=== PATIENT | male | born 2000 | race Two or more races ===

== ENCOUNTER 2020-12-14 19:27 | Emergency (ER) | payer OTHER ==
[~2020-12-14] VITALS: Ht 172.7 cm; Wt 91.8 kg
[2020-12-14] MEDS ORDERED: ONDA4TAB7 PO (20:00)
--- NOTE | 2020-12-14 20:00 | PHYS DOC ---
Adult General Chief Complaint Chief Complaint: NAUSEA/VOMITING/DIARRHEA HPI HPI Patient is a 19-year-old male, otherwise healthy who works at the longterm who presents with a chief complaint of nausea, vomiting and watery diarrhea for couple of days. States that it has been going around in the longterm. Denies any fevers, sore throat, chest pain, shortness of breath, other abdominal pain, dysuria, hematuria, blood in the stool. States he had not taken any medications for this. Denies any alcohol or drug use. Denies any recent traumas, travel. Review of Systems Review of Systems Review of systems otherwise unremarkable except noted in HPI Current Medications Current Medications Current Medications Medications (Trade) Dose Ordered Sig/Claudia Start Time Stop Time Status Last Admin Dose Admin Ondansetron HCl (Zofran Odt) 8 mg 1X ONCE 12/14/20 19:30 12/14/20 19:31 UNV Physical Exam Physical Exam Constitutional: Well developed, well nourished, no acute distress, non-toxic appearance. [] HENT: Normocephalic, atraumatic, bilateral external ears normal, oropharynx moist, no oral exudates, nose normal. [] Eyes: conjunctiva normal, no discharge. [] Neck: Normal range of motion, no tenderness, supple, no stridor. [] Cardiovascular:Heart rate regular rhythm, no murmur [] Lungs & Thorax: Bilateral breath sounds clear to auscultation [] Abdomen: soft, no tenderness, no masses, no pulsatile masses. [] Skin: Warm, dry, no erythema, no rash. [] Back: no CVA tenderness. [] Extremities: No tenderness, no cyanosis, no clubbing, ROM intact, no edema. [] Neurologic: Alert and oriented X 3, normal motor function, normal sensory function, no focal deficits noted. [] Psychologic: Affect normal, judgement normal, mood normal. [] EKG EKG [] Radiology/Procedures Radiology/Procedures [] Heart Score C/O Chest Pain: No Risk Factors: Risk Factors: DM, Current or recent (<one month) smoker, HTN, HLP, family history of CAD, obesity. Risk Scores: Risk Factors: DM, Current or recent (<one month) smoker, HTN, HLP, family history of CAD, obesity. Course & Med Decision Making Course & Med Decision Making Patient is a 19-year-old male who presents with nausea, vomiting and diarrhea Vital signs not concerning. Physical exam noted above. Given oral Zofran which allowed patient to take p.o. in the ED. Discussed all findings with patient and gave work note over the next couple of days as I told him I want him to contact his primary care physician to set up a follow-up and prevent spread of any communicable disease in the longterm. Discussed symptom control at home. Discussed diet at home. Advised to call primary care physician first thing in the morning. Gave return precautions to the ED. Patient grateful, verbalized understanding and agreed with plan of discharge. Dragon Disclaimer Dragon Disclaimer This electronic medical record was generated, in whole or in part, using a voice recognition dictation system. Departure Departure: Impression: Primary Impression: Nausea vomiting and diarrhea Disposition: HOME / SELF CARE / HOMELESS Condition: GOOD Referrals: PCP,UNKNOWN (PCP) NATE GARCIA MD Patient Instructions: Diarrhea, Nausea and Vomiting Additional Instructions: Thank you for coming into the emergency department today and allowing us to take care of you. You were given nausea medication in the emergency department which allowed you to take in oral fluids. As discussed, you were given a work note for the next couple days to allow you to stay home, take care of yourself, call your primary care physician and not go back to the longterm and spread any viruses or illnesses that you may have. Please call your primary care physician first thing in the morning to update on ED visit and set up a follow-up visit. Please take your nausea medicine as prescribed. Please adjust your diet as discussed. Please come back to the emergency department with new or concerning symptoms as discussed. Scripts Ondansetron Hcl (ZOFRAN) 4 Mg Tablet 1 TAB PO PRN Q6HRS PRN for NAUSEA, #20 TAB Prov: JUAN HAUSER MD 12/14/20 JUAN HAUSER MD Dec 14, 2020 20:00
[2020-12-14 20:02] VITALS: BP 147/79
[2020-12-14] MEDS ORDERED: ONDANSETRON ODT 4 MG TAB.RAPDIS PO ONE (20:15)
== END 2020-12-14 20:18 | disposition home or self-care (01) ==
LOC: ER 19:27
DX: R11.2 Nausea with vomiting, unspecified (principal); R19.7 Diarrhea, unspecified
CPT/HCPCS: 99283; Q0162

== ENCOUNTER 2020-12-17 12:44 | Emergency (ER) | payer OTHER ==
[~2020-12-17] VITALS: Ht 172.7 cm; Wt 90.7 kg
[~2020-12-17 12:44] MED LIST: ONDA4TAB7 PO
[2020-12-17] MEDS ORDERED: IV NORMAL SALINE 1,000ML 1,000 ML IV ONE (13:00)
[2020-12-17] MEDS ORDERED: ONDANSETRON PF 4 MG/2 ML VIAL. IVP ONE (13:00)
--- NOTE | 2020-12-17 13:13 | PHYS DOC ---
Past History Past Medical History: No Pertinent History (JUAN PABLO DAHL APRN) Past Surgical History: No Surgical History (JUAN PABLO DAHL APRN) Alcohol Use: Occasionally (JUAN PABLO DAHL APRN) General Adult EDM: Chief Complaint: NAUSEA/VOMITING/DIARRHEA HPI: HPI: Patient is a 19-year-old male presents with nausea and vomiting. Patient states he was seen here in the emergency room on 12/14 for nausea and vomiting. Patient was sent home with a prescription for Zofran and denies any episodes of vomiting until this morning. Patient denies diarrhea, abdominal pain, fevers. Denies medical history. (JUAN PABLO DAHL APRN) Review of Systems: Review of Systems: Constitutional: Denies fever or chills Eyes: Denies change in visual acuity HENT: Denies nasal congestion or sore throat Respiratory: Denies cough or shortness of breath Cardiovascular: Denies chest pain or edema GI: Denies abdominal pain. Reports nausea and vomiting. : Denies dysuria Musculoskeletal: Denies back pain or joint pain Integument: Denies rash Neurologic: Denies headache, focal weakness or sensory changes Endocrine: Denies polyuria or polydipsia Lymphatic: Denies swollen glands Psychiatric: Denies depression or anxiety (JUAN PABLO DAHL APRN) Current Medications: Current Meds: Current Medications Medications (Trade) Dose Ordered Sig/Claudia Start Time Stop Time Status Last Admin Dose Admin Ondansetron HCl (Zofran) 4 mg 1X ONCE 12/17/20 13:00 12/17/20 13:01 DC Sodium Chloride 1,000 ml @ 1,000 mls/hr 1X ONCE 12/17/20 13:00 12/17/20 13:59 (JUAN PABLO DAHL APRN) Allergies: Allergies: Allergies Coded Allergies Type Severity Reaction Last Updated Verified No Known Drug Allergies 12/14/20 No (JUAN PABLO DAHL APRN) Physical Exam: PE: Constitutional: Well developed, well nourished, no acute distress, non-toxic appearance. [] HENT: Normocephalic, atraumatic, bilateral external ears normal, oropharynx moist, no oral exudates, nose normal. [] Eyes: PERRLA, EOMI, conjunctiva normal, no discharge. [] Neck: Normal range of motion, no tenderness, supple, no stridor. [] Cardiovascular:Heart rate regular rhythm, no murmur [] Lungs & Thorax: Bilateral breath sounds clear to auscultation [] Abdomen: Bowel sounds normal, soft, no tenderness Skin: Warm, dry, no erythema, no rash. [] Back: No tenderness, no CVA tenderness. [] Extremities: No tenderness, no cyanosis, no clubbing, ROM intact, no edema. [] Neurologic: Alert and oriented X 3, normal motor function, normal sensory function, no focal deficits noted. [] Psychologic: Affect normal, judgement normal, mood normal. [] (JUAN PABLO DAHL APRN) Current Patient Data: Vital Signs: Vital Signs Date Time Temp Pulse Resp B/P (MAP) Pulse Ox O2 Delivery O2 Flow Rate FiO2 12/17/20 12:45 98.0 74 20 154/71 (98) 100 (JUAN PABLO DAHL APRN) EKG: EKG: [] (JUAN PABLO DAHL APRN) Radiology/Procedures: Radiology/Procedures: [] (JUAN PABLO DAHL APRN) Heart Score: C/O Chest Pain: No Risk Factors: Risk Factors: DM, Current or recent (<one month) smoker, HTN, HLP, family history of CAD, obesity. Risk Scores: Score 0 - 3: 2.5% MACE over next 6 weeks - Discharge Home Score 4 - 6: 20.3% MACE over next 6 weeks - Admit for Clinical Observation Score 7 - 10: 72.7% MACE over next 6 weeks - Early Invasive Strategies (JUAN PABLO DAHL APRN) Course & Med Decision Making: Course & Med Decision Making Pertinent Labs and Imaging studies reviewed. (See chart for details) [] 19-year-old male presents with an episode of vomiting this morning. Patient reports taking a Zofran this morning. Patient given a liter bolus of normal saline and 4 mg of Zofran in the emergency room.. Patient denying nausea at this time. AST, ALT, alkaline phos slightly elevated. Patient given prescription for 40 mg of Nexium daily. Instructed patient to call PCP to get a follow-up appointment. Patient to continue taking Zofran as needed. All other labs were nonconcerning. Patient is hemodynamically stable. Patient's appreciative and okay with discharge plan. (JUAN PABLO DAHL APRN) Edilon Disclaimer: Dragon Disclaimer: This electronic medical record was generated, in whole or in part, using a voice recognition dictation system. (JUAN PABLO DAHL APRN) Attending Co-Sign The patient was seen and interviewed as well as examined at the bedside. The chart was reviewed. The case was discussed. Agree with the plan of care. (LILIANA BALDWIN DO) Departure Departure: Impression: Primary Impression: Nausea & vomiting Qualified Codes: R11.2 - Nausea with vomiting, unspecified Additional Impression: GERD (gastroesophageal reflux disease) Qualified Codes: K21.9 - Gastro-esophageal reflux disease without esophagitis Disposition: HOME / SELF CARE / HOMELESS Condition: STABLE Referrals: CECILIA SHEN DO (PCP) Patient Instructions: Nausea and Vomiting Additional Instructions: You are seen in the emergency room for an episode of vomiting this morning after being seen in the emergency room 2 days ago for nausea and vomiting. Sending you home with prescription for Nexium. Please call your PCP to set up an appointment for follow-up. Return to the emergency room if you have worsening symptoms or concerns. EMERGENCY DEPARTMENT GENERAL DISCHARGE INSTRUCTIONS Thank you for coming to [facility] (ED) today and trusting us with you care. We trust that you had a positivie experience in our Emergency Department. If you wish to speak to the department management, you may call the director at [phone]. YOUR FOLLOW UP INSTRUCTIONS ARE FOLLOWS: 1. Do you have a private Doctor? If you do not have a private doctor, please ask for a resource list of physicians or clinics that may be able to assist you with follow up care. 2. The Emergency Physician has interpreted your x-rays. The X-Ray specialist will also review them. If there is a change in the findings, you will be notified in 48 hours when at all possible. 3. A lab test or culture has been done, your results will be reviewed and you will be notified if you need a change in treatment. ADDITIONAL INSTRUCTIONS AND INFORMATION: 1. Your care today has been supervised by a physician who is specially trained in emergency care. Many problems require more than one evaluation for a complete diagnosis and treatment. We recommend that you schedule your follow up appointment as recommended to ensure complete treatment of you illness or injury. If you are unable to obtain follow up care and continue to have a problem, or if your condition worsens, we recommend that you return to the ED. 2. We are not able to safely determine your condition over the phone nor are we able to give sound medical advice over the phone. For these safety reasons, if you call for medical advice we will ask you to come to the ED for further evaluation. 3. If you have any questions regarding these discharge instructions please call the ED at [phone]. SAFETY INFORMATION: In the interest of safety, wellness, and injury prevention; we encourage you to wear your sealbelt, if you smoke; quite smoking, and we encourage family to use a protective helmet for bicycling and other sporting events that present an increased risk for head injury. IF YOUR SYMPTOMS WORSEN OR NEW SYMPTOMS DEVELOP, OR YOU HAVE CONCERNS ABOUT YOUR CONDITION; OR IF YOUR CONDITION WORSENS WHILE YOU ARE WAITING FOR YOUR FOLLOW UP APPOINTMENT; EITHER CONTACT YOUR PRIMARY CARE DOCTOR, THE PHYSICIAN WHOSE NAME AND NUMBER YOU WERE GIVEN, OR RETURN TO THE ED IMMEDIATELY. Scripts Esomeprazole Magnesium (NEXIUM CAPSULE) 40 Mg Capsule.dr 1 CAP PO DAILY for gerd for 14 Days, #14 CAP 5 Refills Prov: JUAN PABLO DAHL APRN 12/17/20 JUAN PABLO DAHL APRN Dec 17, 2020 13:13 LILIANA BALDWIN DO Dec 18, 2020 06:40
[2020-12-17 13:16] LABS: BASO % 1 % (0-3); EOS # 0.1 x10^3/uL (0.0-0.7); EOS % 1 % (0-3); HEMATOCRIT 45.8 % (39.0-53.0); HEMOGLOBIN 15.7 g/dL (13.0-17.5); LYMPH # 1.3 x10^3/uL (1.0-4.8); LYMPH % 16 % (24-48); MEAN CORPUSCULAR HEMOGLOBIN 30 pg (25-35); MEAN CORPUSCULAR HGB CONC 34 g/dL (31-37); MEAN CORPUSCULAR VOLUME 87 fL (79-100); MONO # 0.5 x10^3/uL (0.0-1.1); MONO % 6 % (0-9); NEUT # 5.9 x10^3uL (1.8-7.7); NEUT % 76 % (31-73); PLATELET COUNT 279 x10^3/uL (140-400); RED BLOOD COUNT 5.27 x10^6/uL (4.30-5.70); RED CELL DISTRIBUTION WIDTH 12.7 % (11.5-14.5); WHITE BLOOD COUNT 7.8 x10^3/uL (4.0-11.0)
[2020-12-17 13:22] LABS: CALCIUM 9.8 mg/dL (8.5-10.1); CREATININE 1.2 mg/dL (0.7-1.3); GFR 76.4; POTASSIUM 3.7 mmol/L (3.5-5.1)
[2020-12-17 13:28] LABS: ALBUMIN 4.6 g/dL (3.4-5.0); ALBUMIN/GLOBULIN RATIO 1.2 (1.0-1.7); TOTAL BILIRUBIN 0.4 mg/dL (0.2-1.0); TOTAL PROTEIN 8.3 g/dL (6.4-8.2)
[2020-12-17 13:55] LABS: DIRECT BILIRUBIN 0.1 mg/dL (0.0-0.2)
[2020-12-17] MEDS ORDERED: ESOM40CA PO (14:24)
[2020-12-17 14:35] VITALS: BP 146/57
== END 2020-12-17 14:35 | disposition home or self-care (01) ==
LOC: ER 12:44
DX: K21.9 Gastro-esophageal reflux disease without esophagitis (principal); R11.2 Nausea with vomiting, unspecified
CPT/HCPCS: 36415; 80053; 82248; 83690; 85025; 96374; 99283; J2405; J7030

== ENCOUNTER 2021-10-05 20:32 | Emergency (ER) | payer OTHER ==
[~2021-10-05] VITALS: Ht 172.7 cm; Wt 97.0 kg
[2021-10-05 20:32] VITALS: BP 109/80
[~2021-10-05 20:32] MED LIST changes: +ESOM40CA PO
[2021-10-05] MEDS ORDERED: HYDROcodone/APAP 5/325MG 1 TAB TABLET PO ONE (20:45)
[2021-10-05] MEDS ORDERED: LIDOCAINE 1% Multi-Dose 20 ML VIAL. IJ ONE (20:45)
--- NOTE | 2021-10-05 22:17 | PHYS DOC ---
Past History Past Medical History: No Pertinent History (RANJIT CORONA APRN) Past Surgical History: No Surgical History (RANJIT CORONA APRN) Alcohol Use: Occasionally (RANJIT CORONA APRN) General Adult EDM: Chief Complaint: LACERATION/AVULSION HPI: HPI: Patient is a 20-year-old male who presents to the emergency department with lacerations to his right knuckles after he punched a glass picture frame. Patient reports that his tetanus is up-to-date. He denies any decreased range of motion or decreased sensation in his hand. (RANJIT CORONA APRN) Review of Systems: Review of Systems: Musculoskeletal: See HPI Integument: See HPI Neurologic: See HPI (RANJIT CORONA APRN) Current Medications: Current Meds: Current Medications Medications (Trade) Dose Ordered Sig/Claudia Start Time Stop Time Status Last Admin Dose Admin Acetaminophen/ Hydrocodone Bitart (Lortab 5/325) 1 tab 1X ONCE 10/05/21 20:45 10/05/21 20:59 DC 10/05/21 20:46 1 TAB Lidocaine HCl 20 ml 1X ONCE 10/05/21 20:45 10/05/21 20:59 DC 10/05/21 20:46 20 ML (RANJIT CORONA APRN) Allergies: Allergies: Allergies Coded Allergies Type Severity Reaction Last Updated Verified No Known Drug Allergies 12/14/20 No (RANJIT CORONA APRN) Physical Exam: PE: Constitutional: Well developed, well nourished, no acute distress, non-toxic appearance. [] HENT: Normocephalic, atraumatic, bilateral external ears normal, oropharynx moist, no oral exudates, nose normal. [] Eyes: PERRL, EOMI, conjunctiva normal, no discharge. [] Neck: Normal range of motion, no stridor Cardiovascular: Normal peripheral perfusion Lungs & Thorax: Normal work of breathing, no tachypnea Abdomen: Soft flat Skin: Warm, dry, no erythema, no rash. [] Back: No tenderness, normal range of motion Extremities: No tenderness, no cyanosis, no clubbing, ROM intact, no edema. [] Right hand: 0.5 cm laceration noted to patient's dorsal aspect of his right hand proximal to his fifth finger, C-shaped 1 cm laceration noted to the dorsal aspect of his right hand proximal to his fourth finger scattered abrasions noted to the dorsal aspect of his hand and knuckles, 2 and half centimeter C-shaped laceration noted to the dorsal aspect of his right hand over the MCP joint of his right second finger, range of motion intact, neuro intact, no tendon involvement, no visible foreign body Neurologic: Alert and oriented X 3, normal motor function, normal sensory function, no focal deficits noted. [] Psychologic: Affect normal, judgement normal, mood normal. [] (RANJIT CORONA APRN) Current Patient Data: Vital Signs: Vital Signs Date Time Temp Pulse Resp B/P (MAP) Pulse Ox O2 Delivery O2 Flow Rate FiO2 10/05/21 20:32 105 109/80 (90) 99 10/05/21 20:32 22 Room Air (RANJIT CORONA APRN) EKG: EKG: [] (RANJIT CORONA APRN) Radiology/Procedures: Radiology/Procedures: [] (RANJIT CORONA APRN) Heart Score: C/O Chest Pain: N/A Risk Factors: Risk Factors: DM, Current or recent (<one month) smoker, HTN, HLP, family history of CAD, obesity. Risk Scores: Score 0 - 3: 2.5% MACE over next 6 weeks - Discharge Home Score 4 - 6: 20.3% MACE over next 6 weeks - Admit for Clinical Observation Score 7 - 10: 72.7% MACE over next 6 weeks - Early Invasive Strategies (RANJIT CORONA APRN) Course & Med Decision Making: Course & Med Decision Making Pertinent Labs and Imaging studies reviewed. (See chart for details) [] Presents to the emergency department after punching a glass picture frame with abrasions and lacerations to his right knuckles. Imaging was performed to rule out fracture which showed no acute fracture read by supervising physician. Wound was irrigated with sterile saline and his was soaked. Any glass foreign bodies were removed. There is no tendon involvement lacerations, patient has good range of motion of his hand and is neurovascularly intact. Lacerations were repaired with sutures. Patient's tetanus is up-to-date.discussed with supervising physician. Patient will be discharged with home with an antibiotic. He will be discharged home with pain medication. I discussed with patient all findings and diagnostic testing as well as the need to follow-up with PCP for further evaluation and treatment or return to the ER if any new or worsening symptoms. Strict return precautions were also discussed at length. Patient voiced understanding and agreement with the plan. Patient is hemodynamically stable at the time of disposition. (RANJIT CORONA APRN) Dragon Disclaimer: Dragon Disclaimer: This electronic medical record was generated, in whole or in part, using a voice recognition dictation system. (RANJIT CORONA APRN) Laceration Repair Lac Repair Time:[id number] Confirmed: Patient, procedure, site, and site correct Consent: Patient has given verbal consent Laceration location: Dorsal aspect right hand Shape: See physical assessment Depth: With subcutaneous involvement Details: Clean with no foreign material Neurovascular, tendon exam: Intact Anesthesia: 1% lidocaine Preparation: Sterile field established Irrigation: Wound irrigated with sterile saline wash Debridement: Skin closure: Simple interrupted sutures placed Size of suture: 6-0 Ethilon Number of sutures: First laceration proximal to fifth finger: 2 sutures placed, C-shaped laceration proximal to fourth finger: 2 sutures placed, C-shaped laceration noted to MCP joint of right second finger: 9 sutures placed Complexity: Single layer Post procedure exam: Circulation, motor, sensory exam intact, bleeding controlled. Complications: None Patient tolerated: Well Performed by: self Total time: 30 minutes (RANJIT CORONA APRN) Attending Co-Sign The patient was seen and interviewed as well as examined at the bedside. The chart was reviewed. The case was discussed. Agree with the plan of care. (LILIANA BALDWIN DO) Departure Departure: Impression: Primary Impression: Laceration Disposition: 01 HOME / SELF CARE / HOMELESS Condition: GOOD Referrals: PCP,UNKNOWN (PCP) Patient Instructions: Laceration Care, Adult Additional Instructions: You are seen in the emergency department for lacerations to your hand. Please keep these areas clean and dry. Wash with mild soap and warm water. Please keep the dressing in place. You can apply Polysporin or bacitracin ointment on to the laceration and abrasions. You are being discharged home with an a ntibiotic. Please start and finish it completely. You will need to follow-up with your primary care provider return to the emergency department to have your sutures removed in 7 to 10 days. Please monitor for any signs of infection which include redness, warmth, swelling or drainage. Follow-up with your primary care provider tomorrow regarding your ER visit. If you develop any of these signs of infection, decreased range of motion, decreased sensation or increased pain to your hand please return to the emergency department immediately. Scripts Cephalexin (KEFLEX) 500 Mg Capsule 1 CAP PO BID for infection for 7 Days, #14 CAP 0 Refills Prov: RANJIT CORONA APRN 10/05/21 RANJIT CORONA APRN Oct 05, 2021 22:17 LILIANA BALDWIN DO Oct 07, 2021 14:08
[2021-10-05] MEDS ORDERED: CEPH500C PO (22:39)
--- NOTE | 2021-10-05 23:04 | RAD ---
EXAM: 3 views right hand DATE: 10/05/2021 10:09 PM INDICATION: Reason: hand injury / Spl. Instructions: / History: . COMPARISON: No Prior FINDINGS: Old/healed fifth metacarpal fracture. Soft tissue swelling about the index and long fingers. Punctate radiopaque density at the dorsal aspect of the right index finger, retained foreign body or on the s kin surface. No acute fracture or dislocation. IMPRESSION: No evidence of acute fracture or dislocation. Punctate radiopaque density at the dorsal aspect of the right index finger, retained foreign body or on the skin surface. Electronically signed by: Fco Bermudez MD (10/05/2021 11:02 PM) SARINA
== END 2021-10-05 22:55 | disposition home or self-care (01) ==
LOC: ER 20:32
DX: S61.216A Laceration without foreign body of right little finger without damage to nail, initial encounter (principal); S61.214A Laceration without foreign body of right ring finger without damage to nail, initial encounter; S61.210A Laceration without foreign body of right index finger without damage to nail, initial encounter; W26.8XXA Contact with other sharp object(s), not elsewhere classified, initial encounter; Y93.89 Activity, other specified; Y92.89 Other specified places as the place of occurrence of the external cause; Y99.8 Other external cause status
CPT/HCPCS: 12001; 12002; 73130; 99283